=== PATIENT | female | born 1970 | race Caucasian/White ===

== ENCOUNTER → 2017-01-13 | Outpatient (CLI) | payer BC ==
[~2017-01-13] MED LIST: CALCIUM 600 +1 EAC7 PO; DUREZOL5 ML OP; DUREZOL5 ML OS; FLAGYL500 MG PO; LEVAQUIN TAB 5500 MG PO; LUTEIN-ZEAXANT1 EACH PO; MEGA BIOTIN10000 MCG PO; NAPROXEN250 MG PO; NORCO 7.5-3251 EACH PO; PROBIOTIC1 EAC1 PO; RESTASIS1 EACH OD; TESTOSTERONE TOP; TYLENOL 325MG325 MG PO; WELLBUTRIN SR150 MG PO
[2017-01-13 09:57] LABS: HEMOGLOBIN 12.7 gm/dl (12.3-15.3); RED BLOOD COUNT 4.39 M/UL (4.00-5.10); WHITE BLOOD COUNT 5.6 K/UL (4.5-11.0)
[2017-01-13 10:21] LABS: BUN/CREATININE RATIO 14 (0-10)
== END ==
LOC: LAB 08:12
PROVIDERS: Internal Medicine
DX: E53.8 Deficiency of other specified B group vitamins (principal); M25.50 Pain in unspecified joint
CPT/HCPCS: 36415; 80048; 80061; 80076; 82607; 84443; 84550; 85025; 86039; 86140; 86200; 86431

== ENCOUNTER → 2017-02-23 | Outpatient (CLI) | payer BC | LOC: HEART 5 14:52 | DX: R06.02 Shortness of breath (principal) | CPT/HCPCS: 93306 ==

== ENCOUNTER → 2017-02-26 | Outpatient (CLI) | payer BC | LOC: MRI 14:00 | DX: R22.32 Localized swelling, mass and lump, left upper limb (principal) | CPT/HCPCS: 73218 ==

== ENCOUNTER → 2020-12-18 | Outpatient (CLI) | payer OTHER, BC ==
[~2020-12-18] MED LIST changes: +AMERGE2.5 MG PO; +ESOMEPRAZOLE MA40 MG PO; +ESTRACE42.5 GM VG; +FLEXERIL 10 MG10 MG PO; +FLOVENT 220.1 GM/INH INH; +IBUPROFEN600 MG PO; +IBUPROFEN800 MG PO; +MEDROL DOSEPAK 24 MG PO; +NORCO 5-325 TA1 EACH PO; +PROAIR DIGIHAL90 MCG INH; +PROLIA INJ60 MG/1 ML SC; +SINGULAIR10 MG PO; +SKELAXIN800 MG PO; +SUDOGEST60 MG PO; +TESSALON PERLE100 MG PO; +TOPAMAX25 MG PO; +TORADOL 10 MG T10 MG PO; +VITAMIN B12-FO1 EACH PO; +VITAMIN D32000 UNI1 PO; +VOLTAREN100 GM TP; +ZOFRAN 4 MG TAB4 MG PO
== END ==
LOC: KOH-I 11-29 10:00
DX: S09.90XA Unspecified injury of head, initial encounter (principal); G44.309 Post-traumatic headache, unspecified, not intractable; E78.00 Pure hypercholesterolemia, unspecified; F40.240 Claustrophobia; V89.2XXA Person injured in unspecified motor-vehicle accident, traffic, initial encounter
CPT/HCPCS: 70551

== ENCOUNTER → 2021-03-20 | Outpatient (CLI) | payer BC, OTHER | LOC: ECHO 16:00 | DX: I20.8 Other forms of angina pectoris (principal); I07.1 Rheumatic tricuspid insufficiency | CPT/HCPCS: 93306 ==

== ENCOUNTER → 2021-04-10 | Outpatient (CLI) | payer BC, OTHER | LOC: HEART 5 15:11 | DX: R00.2 Palpitations (principal); R00.1 Bradycardia, unspecified; I47.1 Supraventricular tachycardia ==

== ENCOUNTER → 2021-04-17 | Outpatient (CLI) | payer BC, OTHER ==
[2021-04-17 10:35] LABS: BUN/CREATININE RATIO 21 (0-10)
== END ==
LOC: LAB 09:33
PROVIDERS: Physician Assistant
DX: R06.02 Shortness of breath (principal); R05 Cough; E03.9 Hypothyroidism, unspecified
CPT/HCPCS: 36415; 71046; 80048; 84443

== ENCOUNTER → 2021-05-08 | Outpatient (CLI) | payer BC ==
[~2021-05-08] MED LIST changes: +DULERA 100 MCG8.8 GM INH; +EMGALITY120 MG/1 M SQ; +LUTEIN20 MG PO; +TOPROL XL 25 MG25 MG PO
== END ==
LOC: NM 06:56
DX: I20.8 Other forms of angina pectoris (principal)
CPT/HCPCS: 78452; 93017; A9502

== ENCOUNTER → 2021-05-28 | Day surgery (SDC) | payer BC | END | disposition home or self-care (01) | LOC: OR 06:47 | DX: Z12.11 Encounter for screening for malignant neoplasm of colon (principal); D12.3 Benign neoplasm of transverse colon; K57.30 Diverticulosis of large intestine without perforation or abscess without bleeding; K64.1 Second degree hemorrhoids; J45.909 Unspecified asthma, uncomplicated; E78.2 Mixed hyperlipidemia; E03.9 Hypothyroidism, unspecified; F41.9 Anxiety disorder, unspecified; K58.9 Irritable bowel syndrome, unspecified; R00.2 Palpitations; F40.240 Claustrophobia; F32.9 Major depressive disorder, single episode, unspecified; G43.909 Migraine, unspecified, not intractable, without status migrainosus; K21.9 Gastro-esophageal reflux disease without esophagitis; M81.0 Age-related osteoporosis without current pathological fracture; E66.9 Obesity, unspecified; Z86.16 Personal history of COVID-19; Z80.0 Family history of malignant neoplasm of digestive organs; Z68.30 Body mass index [BMI] 30.0-30.9, adult; Z88.0 Allergy status to penicillin; Z79.899 Other long term (current) drug therapy | CPT/HCPCS: J2704; J7040 ==

== ENCOUNTER → 2021-07-04 | Outpatient (CLI) | payer BC ==
[2021-07-04 10:02] LABS: HEMOGLOBIN 14.3 gm/dl (12.3-15.3); RED BLOOD COUNT 4.92 M/UL (4.00-5.10); WHITE BLOOD COUNT 8.5 K/UL (4.5-11.0)
== END ==
LOC: LAB 09:01
PROVIDERS: Internal Medicine
DX: E53.8 Deficiency of other specified B group vitamins (principal); E03.9 Hypothyroidism, unspecified
CPT/HCPCS: 36415; 80048; 80061; 80076; 82607; 84443; 85025

== ENCOUNTER → 2021-07-08 | Outpatient (CLI) | payer BC | LOC: EXRD 09:23 | DX: E03.9 Hypothyroidism, unspecified (principal) | CPT/HCPCS: 76536 ==

== ENCOUNTER → 2021-11-21 | Outpatient (CLI) | payer BC | LOC: CT 11-07 15:00 | DX: R51.9 Headache, unspecified (principal) | CPT/HCPCS: 70450 ==

== ENCOUNTER → 2021-12-17 | Outpatient (CLI) | payer BC ==
[2021-12-18 08:15] LABS: FREE THYROXINE INDEX 2.3 (1.2-4.9); THYROXINE (T4) 8.3 ug/dL (4.5-12.0); TSH 1.91 uIU/mL (0.450-4.500); VITAMIN D, 25-HYDROXY 67.6 ng/mL (30.0-100.0)
[2021-12-18 14:12] LABS: THYROGLOBULIN ANTIBODY 5.7 IU/mL (0.0-0.9)
== END ==
LOC: LAB 09:44
PROVIDERS: Internal Medicine
DX: E03.9 Hypothyroidism, unspecified (principal); R79.89 Other specified abnormal findings of blood chemistry; M81.0 Age-related osteoporosis without current pathological fracture; E04.1 Nontoxic single thyroid nodule; E55.9 Vitamin D deficiency, unspecified
CPT/HCPCS: 36415; 84436; 84439; 84443; 84479; 86376; 86800

== ENCOUNTER → 2022-02-06 | Outpatient (CLI) | payer BC ==
[2022-02-06 09:34] LABS: HEMOGLOBIN 14.4 gm/dl (12.3-15.3); RED BLOOD COUNT 4.84 M/UL (4.00-5.10); WHITE BLOOD COUNT 6.1 K/UL (4.5-11.0)
[2022-02-06 10:45] LABS: BUN/CREATININE RATIO 20 (0-10)
[2022-02-07 08:14] LABS: HBSAG SCREEN Negative (Negative); HEP A AB, IGM Negative (Negative); HEP B CORE AB, IGM Negative (Negative); HEP C VIRUS AB 0.2 (0.0-0.9); VITAMIN D, 25-HYDROXY 41.5 ng/mL (30.0-100.0)
== END ==
LOC: LAB 08:46
PROVIDERS: Internal Medicine
DX: E78.00 Pure hypercholesterolemia, unspecified (principal); M81.0 Age-related osteoporosis without current pathological fracture
CPT/HCPCS: 36415; 80048; 80061; 80074; 84443; 85025

== ENCOUNTER → 2022-03-27 | Outpatient (CLI) | payer BC | LOC: LAB 15:34 | DX: R06.02 Shortness of breath (principal) | CPT/HCPCS: 36415; 85379 ==

== ENCOUNTER → 2022-04-14 | Outpatient (CLI) | payer BC | LOC: CT 07:52 | DX: J45.909 Unspecified asthma, uncomplicated (principal); R05.3 Chronic cough; R06.02 Shortness of breath | CPT/HCPCS: 71260; Q9967 ==

== ENCOUNTER → 2022-06-23 | Outpatient (CLI) | payer BC ==
[2022-06-23 09:32] LABS: RED BLOOD COUNT 4.62 M/UL (4.00-5.10); WHITE BLOOD COUNT 5.8 K/UL (4.5-11.0)
[2022-06-23 09:56] LABS: BUN/CREATININE RATIO 19 (0-10)
[2022-06-24 08:19] LABS: VITAMIN D, 25-HYDROXY 47.3 ng/mL (30.0-100.0)
[2022-06-24 15:13] LABS: RHEUMATOID ARTHRITIS FACTOR <10.0 IU/mL (<14.0)
[2022-06-24 16:13] LABS: ANTI-CENTROMERE B ANTIBODIES <0.2 AI (0.0-0.9); ANTI-DNA (DS) AB QN 1 IU/mL (0-9); ANTI-JO-1 <0.2 AI (0.0-0.9); ANTIRIBOSOMAL P ANTIBODIES <0.2 AI (0.0-0.9); ANTISCLERODERMA-70 ANTIBODIES <0.2 AI (0.0-0.9); RNP ANTIBODIES 0.2 AI (0.0-0.9); SJOGREN'S ANTI-SS-A <0.2 AI (0.0-0.9); SJOGREN'S ANTI-SS-B <0.2 AI (0.0-0.9); SMITH ANTIBODIES <0.2 AI (0.0-0.9); SMITH/RNP ANTIBODIES <0.2 AI (0.0-0.9)
== END ==
LOC: LAB 09:01
PROVIDERS: Internal Medicine
DX: E55.9 Vitamin D deficiency, unspecified (principal); E53.8 Deficiency of other specified B group vitamins; E04.1 Nontoxic single thyroid nodule; M25.50 Pain in unspecified joint
CPT/HCPCS: 73610; 73630; 80048; 80061; 80076; 82607; 83036; 84439; 84443; 85025; 85652; 86038; 86140; 86200; 86431

== ENCOUNTER → 2022-06-25 | Outpatient (CLI) | payer BC | LOC: MRI 16:12 | DX: M25.472 Effusion, left ankle (principal); M25.572 Pain in left ankle and joints of left foot; M79.672 Pain in left foot; M65.9 Synovitis and tenosynovitis, unspecified | CPT/HCPCS: 73718; 73721 ==

== ENCOUNTER → 2022-07-08 | Outpatient (CLI) | payer BC | LOC: EXRD 15:19 | DX: E04.1 Nontoxic single thyroid nodule (principal); E03.9 Hypothyroidism, unspecified | CPT/HCPCS: 76536 ==